=== PATIENT | male | born 1960 | race Caucasian/White ===

== ENCOUNTER 2019-01-28 16:35 | Emergency (ER) | payer MEDICAID ==
[2019-01-28] MEDS ORDERED: Metoprolol Tartrate 5 MG/5 ML SDV ONE (17:09)
[2019-01-28] MEDS ORDERED: Aspirin 81 MG Tab.Chew ONE (17:09)
[2019-01-28] MEDS ORDERED: Simvastatin 10 MG Tab PO ONE (17:12)
[2019-01-28] MEDS ORDERED: Metoprolol Tartrate 5 MG in Sodium Chloride 0.9% 50 ML IV ONE (17:22)
[2019-01-28] MEDS ORDERED: Aspirin 81 MG Tab.Chew PO ONE (17:22)
[2019-01-28] MEDS ORDERED: Heparin Sodium 5,000 Units/ML Vial IVPUSH ONE (17:22)
[2019-01-28] MEDS ORDERED: Clopidogrel 75 MG Tab PO ONE (17:22)
[2019-01-28] MEDS ORDERED: Tenecteplase 50 MG Kit IV STA (17:23)
[2019-01-28] MEDS ORDERED: Metoprolol Tartrate 5 MG/5 ML SDV IVPUSH ONE ×2 (17:23→17:38)
[2019-01-28] MEDS ORDERED: Heparin Sodium/D5W 25,000 UNITS/500 ML BAG IV SCH (17:30)
--- NOTE | 2019-01-28 17:34 | EDM.PDOC ---
<Sylvia Perez - Last Filed: 01/28/19 18:03> ED HPI GENERAL MEDICAL PROBLEM - General Chief Complaint: Chest Pain Stated Complaint: CHEST PAIN Time Seen by Provider: 01/28/19 17:00 - History of Present Illness INITIAL COMMENTS - FREE TEXT/NARRATIVE: 58 yo male comes in today for mid-sternal CP radiating to both arms, SOB, and diaphoresis starting about 45 min prior to arrival. He states he has never had anything like this and "I feel like something bad is happening". He has no known CAD, but is a 1ppd smoker x 50 years. He does have a h/o PE in 2013. He denies any EtOH or drug use. No other medical history given. No other symptoms or complaints at this time. PCP is Dr. Levar Gama at [place]. - Related Data Allergies Allergy/AdvReac Type Severity Reaction Status Date / Time No Known Allergies Allergy Verified 01/28/19 16:43 Home Meds: Home Meds . [No Known Home Meds] 01/28/19 [History] ED ROS GENERAL - Review of Systems Review Of Systems: ROS reveals no pertinent complaints other than HPI. ED EXAM, GENERAL - Physical Exam Exam: See Below Exam Limited By: No Limitations General Appearance: Alert, WD/WN, Moderate Distress Eye Exam: Bilateral Eye: EOMI, Normal Inspection, PERRL Ears: Normal External Exam, Hearing Grossly Normal Throat/Mouth: Normal Inspection, Normal Lips, Normal Teeth, Normal Gums, Normal Oropharynx, Normal Voice, No Airway Compromise Head: Atraumatic, Normocephalic Neck: Normal Inspection, Supple, Non-Tender, Full Range of Motion Respiratory/Chest: No Respiratory Distress, Lungs Clear, Normal Breath Sounds, No Accessory Muscle Use, Chest Non-Tender Cardiovascular: Normal Peripheral Pulses, Regular Rate, Rhythm, No Edema, No Gallop, No JVD, No Murmur, No Rub Peripheral Pulses: 2+: Posterior Tibial (L), Posterior Tibial (R), Dorsalis Pedis (L), Dorsalis Pedis (R) GI/Abdominal: Normal Bowel Sounds, Soft, Non-Tender, No Organomegaly, No Distention, No Abnormal Bruit, No Mass Back Exam: Normal Inspection, Full Range of Motion, NT Extremities: Normal Inspection, Normal Range of Motion, Non-Tender, Normal Capillary Refill, No Pedal Edema Psychiatric: Normal Affect, Normal Mood Skin Exam: Warm, Dry, Intact, Normal Color, No Rash Course - Vital Signs Last Recorded V/S: Last Vital Signs Temp 35.8 C 01/28/19 16:44 Pulse 57 L 01/28/19 17:43 Resp 19 01/28/19 16:44 BP 150/100 H 01/28/19 17:43 Pulse Ox 100 01/28/19 16:44 - Orders/Labs/Meds Orders: Active Orders 24 hr Category Date Time Status EKG Documentation Completion [RC] ASDIRECTED Care 01/28/19 17:01 Active Chest 1V Frontal [CR] Stat Exams 01/28/19 17:00 Taken EKG 12 Lead [EK] Stat Ther 01/28/19 17:00 Ordered Labs: Laboratory Tests 01/28/19 01/28/19 01/28/19 Range/Units 17:05 17:05 17:05 PT 10.3 (9.5-12.1) SECONDS INR 0.94 D-Dimer, Quantitative 0.33 (0.19-0.50) mg/L Sodium 138 (136-145) mEq/L Potassium 3.3 L (3.5-5.1) mEq/L Chloride 101 (98-107) mEq/L Carbon Dioxide 20 L (21-32) mEq/L Anion Gap 20.3 H (5-15) BUN 9 (7-18) mg/dL Creatinine 1.3 (0.7-1.3) mg/dL Est Cr Clr Drug Dosing 55.21 mL/min Estimated GFR (MDRD) 57 (>60) mL/min BUN/Creatinine Ratio 6.9 L (14-18) Glucose 157 H (74-106) mg/dL Calcium 8.9 (8.5-10.1) mg/dL Total Bilirubin 0.5 (0.2-1.0) mg/dL AST 23 (15-37) U/L ALT 39 (16-63) U/L Alkaline Phosphatase 97 (46-116) U/L CK-MB (CK-2) < 0.5 (0-3.6) ng/ml Troponin I < 0.017 (0.00-0.056) ng/mL Total Protein 8.0 (6.4-8.2) g/dl Albumin 4.3 (3.4-5.0) g/dl Globulin 3.7 gm/dL Albumin/Globulin Ratio 1.2 (1-2) Meds: Medications Discontinued Medications Generic Name Dose Route Start Last Admin Trade Name Samantha PRN Reason Stop Dose Admin Aspirin Confirm 01/28/19 17:09 01/28/19 17:24 Aspirin Administered 01/28/19 17:10 Not Given Dose 324 mg .ROUTE .STK-MED ONE Aspirin 324 mg 01/28/19 17:22 01/28/19 17:29 Aspirin PO 01/28/19 17:23 324 mg ONETIME ONE Administration Clopidogrel Bisulfate 300 mg 01/28/19 17:22 01/28/19 17:29 Plavix PO 01/28/19 17:23 300 mg ONETIME ONE Administration Heparin Sodium (Porcine) 4,000 units 01/28/19 17:22 01/28/19 17:31 Heparin Sodium IVPUSH 01/28/19 17:23 4,000 units .BOLUS ONE Administration Metoprolol Tartrate 5 mg/ 55 mls @ 100 mls/hr 01/28/19 17:22 01/28/19 17:23 Sodium Chloride IV 01/28/19 17:54 Not Given ONETIME ONE Heparin Sodium/Dextrose 25,000 units in 500 mls @ 18.507 mls/hr 01/28/19 17: 30 01/28/19 17:31 Heparin 25,000 Units In D5w 500 Ml IV 12 units/kg/hr TITRATE [place] 18.507 mls/hr Administration Protocol 12 UNITS/KG/HR Sodium Chloride Confirm 01/28/19 17:36 01/28/19 17:46 Normal Saline Administered 01/28/19 17:37 Not Given Dose 1,000 mls @ as directed .ROUTE .STK-MED ONE Metoprolol Tartrate Confirm 01/28/19 17:09 01/28/19 17:23 Lopressor Administered 01/28/19 17:10 Not Given Dose 5 mg .ROUTE .STK-MED ONE Metoprolol Tartrate 5 mg 01/28/19 17:23 Lopressor IVPUSH 01/28/19 17:24 ONETIME ONE Metoprolol Tartrate 5 mg 01/28/19 17:38 01/28/19 17:43 Lopressor IVPUSH 01/28/19 17:39 5 mg ONETIME ONE Administration Simvastatin 80 mg 01/28/19 17:12 01/28/19 17:25 Zocor PO 01/28/19 17:13 80 mg ONETIME ONE Administration Tenecteplase 50 mg 01/28/19 17:23 01/28/19 17:33 Tnkase IV 01/28/19 17:24 50 mg ONETIME STA Administration Protocol - Re-Assessments/Exams Free Text/Narrative Re-Assessment/Exam: 01/28/19 17:30 Dr. Hernandez at [facility] has accepted the pt and would like transport YEIMI. He agrees with our treatment of 4 ASA 81mg, Lopressor, Simvastatin 80mg and has requested Heparin gtt, Plavic 300mg and TNK be started here. Labs and CXR are currently pending. 01/28/19 18:[address] Rondon and myself, nothing acute seen. 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 Mid-Sternal Chest Pain Score (Numeric/FACES): 5 Past Medical History HEENT History: Reports: Impaired Vision Cardiovascular History: Reports: Blood Clots/VTE/DVT Respiratory History: Reports: PE - Infectious Disease History Infectious Disease History: Reports: Chicken Pox, Influenza, Measles, Mumps - Past Surgical History Respiratory Surgical History: Reports: None Other Musculoskeletal Surgeries/Procedures:: application of external fixator on left leg Social & Family History - Family History Family Medical History: Unobtainable - Tobacco Use Smoking Status *Q: Current Every Day Smoker Years of Tobacco use: 50 Packs/Tins Daily: 1 - Caffeine Use Caffeine Use: Reports: Soda - Recreational Drug Use Recreational Drug Use: No - Living Situation & Occupation Living situation: Reports: Single, with Significant Other Occupation: Unemployed Course - Orders/Labs/Meds Labs: Laboratory Tests 01/28/19 01/28/19 01/28/19 Range/Units 17:05 17:05 17:05 PT 10.3 (9.5-12.1) SECONDS INR 0.94 D-Dimer, Quantitative 0.33 (0.19-0.50) mg/L Sodium 138 (136-145) mEq/L Potassium 3.3 L (3.5-5.1) mEq/L Chloride 101 (98-107) mEq/L Carbon Dioxide 20 L (21-32) mEq/L Anion Gap 20.3 H (5-15) BUN 9 (7-18) mg/dL Creatinine 1.3 (0.7-1.3) mg/dL Est Cr Clr Drug Dosing 55.21 mL/min Estimated GFR (MDRD) 57 (>60) mL/min BUN/Creatinine Ratio 6.9 L (14-18) Glucose 157 H (74-106) mg/dL Calcium 8.9 (8.5-10.1) mg/dL Total Bilirubin 0.5 (0.2-1.0) mg/dL AST 23 (15-37) U/L ALT 39 (16-63) U/L Alkaline Phosphatase 97 (46-116) U/L CK-MB (CK-2) < 0.5 (0-3.6) ng/ml Troponin I < 0.017 (0.00-0.056) ng/mL Total Protein 8.0 (6.4-8.2) g/dl Albumin 4.3 (3.4-5.0) g/dl Globulin 3.7 gm/dL Albumin/Globulin Ratio 1.2 (1-2) - Re-Assessments/Exams Free Text/Narrative Re-Assessment/Exam: 01/28/19 17:20 I evaluated the patient with Ms. Perez, and have reviewed the patient's ECG, which is consistent with an acute inferolateral STEMI. The patient took 2 aspirins at home, but they were enteric coated, therefore we have ordered 4 chewable baby aspirin, IV Lopressor and 80 mg simvastatin. Ms. Perez will ask the Unit Aide if he wants us to give Plavix and/or heparin. The patient prefers transfer to [facility]. We are looking into transportation options now. 01/28/19 17:30 The Unit Aide wanted us to give TNKase with heparin, and Plavix. The patient will be flown by fixed wing - we are expecting the crew to arrive here around 17 :45. 01/28/19 17:36 The patient's blood pressure has dropped to 55/30. I have ordered a 500 mL bolus of NS. 01/28/19 17:39 Notified that the above blood pressure was incorrect, and that his actual BP is 150/100. I have therefore belayed the IV fluid bolus order and ordered a second Lopressor 5 mg IVP.
[2019-01-28] MEDS ORDERED: Sodium Chloride 0.9% 500 ML IV ONE (17:35)
[2019-01-28] MEDS ORDERED: Sodium Chloride 0.9% 1,000 ML ONE (17:36)
[2019-01-28 17:44] VITALS: BP 150/100
--- NOTE | 2019-01-29 07:11 | CR ---
Chest: Frontal view of the chest was obtained utilizing portable technique. Comparison: Prior chest x-ray of 03/21/13. Heart size appears within normal limits for portable technique. Mediastinum is also felt to be within normal limits for portable technique. Lung markings are slightly prominent which are felt to be technique related. No acute parenchymal change is believed to be present. Bony structures are grossly intact. Impression: 1. Nothing acute is appreciated on portable chest x-ray. Diagnostic code #2
== END 2019-01-28 18:15 ==
LOC: JD.ED 16:35
DX: I21.9 Acute myocardial infarction, unspecified (principal); F17.210 Nicotine dependence, cigarettes, uncomplicated
CPT/HCPCS: 36415; 71045; 80053; 82553; 84484; 85379; 85610; 93005; 96365; 96375; 99285; A9270; J1644; J3101; J3490; 93010